=== PATIENT | female | born 1935 | race Caucasian/White ===

== ENCOUNTER → 2016-11-25 | Day surgery (SDC) | payer OTHER ==
[~2016-11-25] MED LIST: ALLO300T PO; AMLO10TA2 PO; ASPI-482 PO; CARV12.52 PO; FENO160T PO; FENTANYL PF 100 MCG/2 ML VIAL. IV PRN; HYDR30CR6 RC; HYDROMORPHONE 2 MG/ML VIAL. IV PRN; IV RINGERS,LACTATED 1000ML 1,000 ML IV SCH; LIDOCAINE 1% 1 ML SYRINGE. ID PRN; LIDOCAINE 2% PF Vial for OR 5 ML VIAL. ONE; LOSA100T6 PO; MELO-150 PO; MORPHINE SULFATE 2 MG/ML DISP.SYRIN. IV PRN; ONDANSETRON PF 4 MG/2 ML VIAL. IV PRN; PROCHLORPERAZINE 10 MG/2 ML VIAL. IV PRN; PROPOFOL 40 ML IV ONE; SPIR25TA3 PO
[2016-11-25 08:55] VITALS: BP 166/76
--- NOTE | 2016-11-26 13:33 | PATHOLOGY ---
PATHOLOGY REPORT * * * * * * * * FINAL DIAGNOSIS: Random colon biopsy: - Focal mucosal hyperplastic changes and acute inflammation. See comment. COMMENT: Sections of the random colon biopsy primarily reveal segments of colonic mucosa containing several mucosal-associated lymphoid aggregates. There is no evidence of a chronic destructive colitis, lymphocytic colitis, or collagenous colitis. One of the biopsy segments shows mucosal thickening and hyperplastic changes with associated acute inflammation of the lamina propria. This either represents an inflamed hyperplastic polyp or a focal area of acute colitis. Correlate clinically. (JPM:; d/t: 11/26/16) REPORT ELECTRONICALLY SIGNED BY: Hang Laughlin M.D. DATE/TIME: 11/26/2016 13:32 * * * * * * * * GROSS PATHOLOGY: Received in formalin labeled "Dre Tanner, random colon biopsy," are multiple (more than 10) segments of shah soft tissue measuring 0.9 x 0.7 x 0.3 cm in aggregate dimensions and ranging from 0.3 to 0.5 cm in maximum dimension. The specimen is submitted entirely in cassette A1. (KAH; 11/25/2016) INITIAL CPT CODE(S): A; 06688 Professional services performed [place] [facility] [address] Technical services performed by [facility] at [address] [place] [address], [facility] [address] [address]. SPECIMEN(S) RECEIVED: A.Random colon biopsy CLINICAL HISTORY: Abdominal pain PATIENT: DRE TANNER /AGE: 1109/06/1935 (Age: 81) PATIENT #: [id number] ALT CASE #: SPECIMEN COLLECTION DATE: 11/25/2016 SPECIMEN RECEIVED DATE: 11/25/2016 [facility] - [address] [place] [address] - PHONE: [phone] * * * END OF REPORT * * *
== END | disposition home or self-care (01) ==
LOC: ENDOS 06:42
PROVIDERS: ATTEND Internal Medicine Gastroenterology
DX: K64.1 Second degree hemorrhoids (principal); K57.30 Diverticulosis of large intestine without perforation or abscess without bleeding; K52.9 Noninfective gastroenteritis and colitis, unspecified; I10 Essential (primary) hypertension; M19.90 Unspecified osteoarthritis, unspecified site; F32.9 Major depressive disorder, single episode, unspecified; Z86.010 Personal history of colon polyps; Z90.710 Acquired absence of both cervix and uterus
CPT/HCPCS: 45380; 88305; J2704

== ENCOUNTER 2018-05-15 09:39 | Emergency (ER) | payer OTHER ==
[2018-05-15 10:12] LABS: ADD MAN DIFF? NO
[2018-05-15 10:15] LABS: BASO % 1 % (0-3); EOS # 0.3 x10^3/uL (0.0-0.7); EOS % 6 % (0-3); HEMOGLOBIN 12.7 g/dL (12.0-15.5); LYMPH # 1.4 x10^3/uL (1.0-4.8); LYMPH % 24 % (24-48); MEAN CORPUSCULAR HEMOGLOBIN 31 pg (25-35); MEAN CORPUSCULAR HGB CONC 34 g/dL (31-37); MEAN CORPUSCULAR VOLUME 91 fL (79-100); MONO # 0.5 x10^3/uL (0.0-1.1); MONO % 8 % (0-9); NEUT # 3.6 x10^3uL (1.8-7.7); NEUT % 62 % (31-73); PLATELET COUNT 139 x10^3/uL (140-400); RED BLOOD COUNT 4.16 x10^6/uL (3.50-5.40); RED CELL DISTRIBUTION WIDTH 14.3 % (11.5-14.5); WHITE BLOOD COUNT 5.8 x10^3/uL (4.0-11.0)
[2018-05-15 10:23] LABS: POC GLUCOSE 123 mg/dL (70-99)
[2018-05-15 10:56] LABS: ANION GAP 6 (6-14); BLOOD UREA NITROGEN 35 mg/dL (7-20); BUN/CREATININE RATIO 29 (6-20); CARBON DIOXIDE 31 mmol/L (21-32); CHLORIDE 107 mmol/L (98-107); CREATININE 1.2 mg/dL (0.6-1.0); GFR 43.1; GLUCOSE 109 mg/dL (70-99); POTASSIUM 4.8 mmol/L (3.5-5.1); SODIUM 144 mmol/L (136-145)
[2018-05-15 11:02] LABS: ALBUMIN 3.4 g/dL (3.4-5.0); ALK PHOS 91 U/L (46-116); ALT (SGPT) 16 U/L (14-59); AST (SGOT) 16 U/L (15-37); TOTAL BILIRUBIN 0.5 mg/dL (0.2-1.0); TOTAL PROTEIN 6.8 g/dL (6.4-8.2)
[2018-05-15 11:09] LABS: BILIRUBIN,URINE NEGATIVE (NEG); CLARITY,URINE CLEAR; GLUCOSE,URINE NEGATIVE (NEG); NITRITE,URINE NEGATIVE (NEG); PROTEIN,URINE NEGATIVE (NEG-TRACE); UROBILINOGEN,URINE 0.2 mg/dL (0.2 mg/dL)
[2018-05-15 11:24] LABS: COLOR,URINE COLORLESS
[2018-05-15 11:25] LABS: BACTERIA,URINE FEW /HPF (0-FEW); SQUAMOUS EPITHELIAL CELL,UR FEW /LPF
[2018-05-15 11:26] LABS: RBC,URINE OCC /HPF (0-2)
[2018-05-15] MEDS: cloNIDine HCL 0.1 MG TABLET PO (12:45)
[2018-05-15] MEDS: METOPROLOL TARTRATE 5 MG/5 ML VIAL. IVP (13:25)
== END 2018-05-15 14:24 | disposition home or self-care (01) ==
LOC: ER 14:24
DX: R42 Dizziness and giddiness (principal); R51 Headache; I10 Essential (primary) hypertension; M10.9 Gout, unspecified; E78.00 Pure hypercholesterolemia, unspecified; Z88.2 Allergy status to sulfonamides; Z88.8 Allergy status to other drugs, medicaments and biological substances; Z91.040 Latex allergy status
CPT/HCPCS: 36415; 70450; 80053; 81001; 82962; 85025; 93005; 96374; 99285-25; J3490

== ENCOUNTER → 2018-05-25 | Outpatient (CLI) | payer OTHER ==
[2018-05-15 14:07] VITALS: BP 153/70
[~2018-05-25] MED LIST changes: +ALLO100T PO; +CARV25TA2 PO; +DESO60CR TP; -FENTANYL PF 100 MCG/2 ML VIAL. IV PRN; +FURO40TA4 PO; +GEMF600T3 PO; -HYDROMORPHONE 2 MG/ML VIAL. IV PRN; -IV RINGERS,LACTATED 1000ML 1,000 ML IV SCH; -LIDOCAINE 1% 1 ML SYRINGE. ID PRN; -LIDOCAINE 2% PF Vial for OR 5 ML VIAL. ONE; -MELO-150 PO; +MELO15TA23 PO; -MORPHINE SULFATE 2 MG/ML DISP.SYRIN. IV PRN; -ONDANSETRON PF 4 MG/2 ML VIAL. IV PRN; -PROCHLORPERAZINE 10 MG/2 ML VIAL. IV PRN; -PROPOFOL 40 ML IV ONE; -SPIR25TA3 PO; +SPIR25TA5 PO
--- NOTE | 2018-05-25 16:42 | RAD ---
05/25/2018 Renal ultrasound Duplex evaluation duplex ultrasound evaluation of the renal arteries INDICATION:: Chronic renal disease. Stage III. Discussion: Ultrasound evaluation of the kidneys was performed. Static images are submitted to PACS. Limited visualization of the bladder is grossly unremarkable. Prevoid bladder volume 108 cc. Bilateral ureteral jets are noted. Mild renal cortical atrophy is seen on the right. The right kidney measures 9.4 cm in length. No hydronephrosis, nephrolithiasis, or focal renal lesion is seen on the right. Similar mild renal cortical atrophy is seen in the left. Left kidney measures 10.5 cm in length. No hydronephrosis, nephrolithiasis, or focal renal lesion is seen on the left. Ultrasound evaluation of the renal arteries is performed including color Doppler imaging with spectral analysis. Right renal artery peak systolic velocity: 137 cm/s. Left renal artery peak systolic velocity 116 cm/s. Peak systolic velocity of the abdominal aorta at the level renal arteries 187 cm/s. Renal aortic ratio on the right: 0.7 Renal aortic ratio on the left: 0.6. Bilateral renal veins are grossly patent. IMPRESSION: 1.Mild cortical atrophy involving the bilateral kidneys. Otherwise grossly unremarkable sonographic appearance of the kidneys. 2. No sonographic evidence of hemodynamically significant renal arterial stenosis is identified by ultrasound. Electronically signed by: Nahun Prater MD (05/25/2018 4:39 PM) [id number]
== END | disposition home or self-care (01) ==
LOC: US 14:31
PROVIDERS: ATTEND Internal Medicine
DX: N26.1 Atrophy of kidney (terminal) (principal); N18.3 Chronic kidney disease, stage 3 (moderate); E78.00 Pure hypercholesterolemia, unspecified; M19.90 Unspecified osteoarthritis, unspecified site
CPT/HCPCS: 76770; 93975

== ENCOUNTER 2019-02-14 22:39 | Emergency (ER) | payer OTHER ==
[~2019-02-14] VITALS: Ht 162.6 cm; Wt 83.9 kg
[~2019-02-14 22:39] MED LIST changes: -AMLO10TA2 PO; +AMLO10TA8 PO; +CARV12.511 PO; -CARV12.52 PO; -GEMF600T3 PO; +GEMF600T8 PO; +LOSA100T14 PO; -LOSA100T6 PO
[2019-02-14 22:55] VITALS: BP 219/84
--- NOTE | 2019-02-14 23:43 | PHYS DOC ---
Past Medical History Past Medical History: High Cholesterol, Hypertension, Other Additional Past Medical Histor: GOUT (GARFIELD HOROWITZ APRN) Past Surgical History: Hysterectomy, Other Additional Past Surgical Histo: CATARACT, CARPAL TUNNEL, BILAT KNEE, BACK (GARFIELD HOROWITZ APRN) Alcohol Use: None Drug Use: None (GARFIELD HOROWITZ APRN) Adult General Chief Complaint Chief Complaint: LOWER EXT PAIN HPI HPI Patient is a 83 year old female who presents with [3 day history of pain to her right knee. Reports she has been walking and twisted and felt some discomfort struck in her knee. Reports she does have bilateral knee replacements has had s imilar discomfort in that same knee approximately one year prior. Reports at that time she had used a brace and some physical therapy which resolved her discomfort. Today she reports she put the brace on for a little while but did not seem to help. Denies trauma (GARFIELD HOROWITZ APRN) Review of Systems Review of Systems Constitutional: Denies fever or chills [] Respiratory: Denies cough or shortness of breath [] Cardiovascular: No additional information not addressed in HPI [] GI: Denies abdominal pain, nausea, vomiting, bloody stools or diarrhea [] : Denies dysuria or hematuria [] Musculoskeletal: Denies back pain. Reports pain to right knee [] Integument: Denies rash or skin lesions [] Neurologic: Denies headache, focal weakness or sensory changes [] All other systems were reviewed and found to be within normal limits, except as documented in this note. (GARFIELD HOROWITZ APRN) Allergies Allergies Allergies Coded Allergies Type Severity Reaction Last Updated Verified Sulfa (Sulfonamide Antibiotics) Allergy Intermediate 11/25/16 Yes celecoxib Allergy Intermediate 11/25/16 No latex Allergy Intermediate Rash 11/25/16 Yes (PERICO HINSON DO) Physical Exam Physical Exam Constitutional: Well developed, well nourished, no acute distress, non-toxic appearance. [] HENT: Normocephalic, atraumatic, bilateral external ears normal, oropharynx moist, no oral exudates, nose normal. [] Eyes: PERRLA, EOMI, conjunctiva normal, no discharge. [] Neck: Normal range of motion, no tenderness, supple, no stridor. [] Cardiovascular:Heart rate regular rhythm, no murmur [] Lungs & Thorax: Bilateral breath sounds clear to auscultation [] Abdomen: Bowel sounds normal, soft, no tenderness, no masses, no pulsatile masses. [] Skin: Warm, dry, no erythema, no rash. [] Back: No tenderness, no CVA tenderness. [] Extremities: No tenderness, no cyanosis, no clubbing, ROM intact, no edema. Decreased ROM to right knee. [] Neurologic: Alert and oriented X 3, normal motor function, normal sensory function, no focal deficits noted. [] Psychologic: Affect normal, judgement normal, mood normal. [] (GARFIELD HOROWITZ APRN) Current Patient Data Vital Signs Vital Signs Date Time Temp Pulse Resp B/P (MAP) Pulse Ox O2 Delivery O2 Flow Rate FiO2 02/14/19 22:55 98.4 69 18 219/84 (129) 95 Room Air 98.4 (PERICO HINSON DO) EKG EKG [] (GARFIELD HOROWITZ APRN) Radiology/Procedures Radiology/Procedures Dr Hinson reviewed images: No acute fracture, artificial knee appears in place, well aligned without noted abnormalities. @ 0010.[] (GARFIELD HOROWITZ APRN) Radiology/Procedures PROCEDURE: KNEE RIGHT 3V EXAM: Right knee, 3 views. HISTORY: Twisting injury. COMPARISON: None. FINDINGS: 3 views of the right knee are obtained. There is a right knee arthroplasty in expected position. There is no fracture. There is no evidence of prosthesis loosening. There is suspected trace joint fluid. IMPRESSION: No acute osseous finding. Electronically signed by: Tiff Tan MD (02/15/2019 12:09 AM) [facility] (PERICO HINSON DO) Course & Med Decision Making Course & Med Decision Making Pertinent Labs and Imaging studies reviewed. (See chart for details) Discussed findings with patient. Discussed potential for this being similar to what she had last year and will recommend continue use of her splint at home. We'll give her an Johnathon wrap here. Recommending ice. Recommend she continues her exercises she was doing last year per her or so. Also recommend she follow although this next week. Patient in agreement with plan of care was no further questions or concerns. [] (GARFIELD HOROWITZ APRN) Dragon Disclaimer Dragon Disclaimer This electronic medical record was generated, in whole or in part, using a voice recognition dictation system. (GARFIELD HOROWITZ APRN) Departure Departure Impression: Primary Impression: Right knee pain Additional Impression: Acute pain of right knee Disposition: HOME, SELF-CARE Condition: GOOD Referrals: ANIBAL PAYNE MD (PCP) Patient Instructions: Knee Pain, [id number] Additional Instructions: As we discussed, use your brace at home when you are up moving around. Continue to do the exercises you learned and were doing last year. Follow up with your Orthopedic surgeon in a week Attending Signature Attending Signature I have reviewed the PA/TECHNICAL ACCOUNT REPRESENTATIVE's note and plan of care. I was available for consultation as needed during the patient's visit in the emergency department. I agree with the clinical impression, plan, and disposition. (PERICO HINSON DO) Problem Qualifiers GARFIELD HOROWITZ APRN February 14, 2019 23:43 PERICO HINSON DO February 15, 2019 05:49
--- NOTE | 2019-02-15 00:13 | RAD ---
EXAM: Right knee, 3 views. HISTORY: Twisting injury. COMPARISON: None. FINDINGS: 3 views of the right knee are obtained. There is a right knee arthroplasty in expected position. There is no fracture. There is no evidence of prosthesis loosening. There is suspected trace joint fluid. IMPRESSION: No acute osseous finding. Electronically signed by: Tiff Tan MD (02/15/2019 12:09 AM) [facility]
== END 2019-02-15 00:45 | disposition home or self-care (01) ==
LOC: ER 22:39
DX: M25.561 Pain in right knee (principal); G89.11 Acute pain due to trauma; I10 Essential (primary) hypertension; E78.00 Pure hypercholesterolemia, unspecified; Z96.653 Presence of artificial knee joint, bilateral; M10.9 Gout, unspecified; Z88.2 Allergy status to sulfonamides; Z91.040 Latex allergy status; Z88.8 Allergy status to other drugs, medicaments and biological substances; X50.9XXA Other and unspecified overexertion or strenuous movements or postures, initial encounter; Y93.01 Activity, walking, marching and hiking; Y92.89 Other specified places as the place of occurrence of the external cause; Y99.8 Other external cause status
CPT/HCPCS: 73562; 99284

== ENCOUNTER → 2019-02-23 | Outpatient (CLI) | payer OTHER ==
[2019-02-14 22:55] VITALS: BP 219/84
--- NOTE | 2019-02-23 15:46 | RAD ---
Three-phase bone scan, 02/23/2019: HISTORY: Right knee pain, previous arthroplasty Imaging of both knees was performed following an IV bolus injection of 22 mCi of technetium 99m MDP. The dynamic flow study is unremarkable. The blood pool images demonstrate photon deficient areas at both knees compatible with bilateral knee prostheses. There is mildly increased activity along the superior margin of the femoral component of the right knee prosthesis at the midline compared to the left on the blood pool image. This persists on the delayed images. Recent radiographs showed no significant abnormality in this region. IMPRESSION: Mildly increased activity along the superior margin of the femoral component of the right knee prosthesis, of uncertain significance. Electronically signed by: Marek Castillo MD (02/23/2019 3:43 PM) [facility]
== END | disposition home or self-care (01) ==
LOC: NM 08:29
PROVIDERS: ATTEND Orthopaedic Surgery
DX: C85.91 Non-Hodgkin lymphoma, unspecified, lymph nodes of head, face, and neck (principal); Z96.651 Presence of right artificial knee joint
CPT/HCPCS: 78315; A9503

== ENCOUNTER → 2020-09-04 | Outpatient (CLI) | payer MEDICARE ==
[2020-07-19 15:00] VITALS: BP 140/72
[~2020-09-04] MED LIST changes: +ACET325T9 PO; +AMLO-187 PO; -AMLO10TA8 PO; +DOCU-153 PO; +FURO20TA3 PO; +HYDR-2761 PO; +LACT1CAP19 PO
--- NOTE | 2020-09-04 14:09 | KCIC ---
EXAM: DUAL ENERGY X-RAY ABSORPTIOMETRY (DEXA). HISTORY: Postmenopausal screening. FINDINGS: The lowest measured T-score is 0.2 in the left total femur, based on a bone mineral density of 0.967 g/cm^2. Refer to the worksheets for full detail. No comparison examinations are available. IMPRESSION: Normal. Bone mineral density yields a T-score of -1.0 or greater. Fracture risk is low. FRAX was not calculated. METHODOLOGY: Dual energy x-ray absorptiometry was performed to measure bone mineral density. The following analysis is based on the 2019 Official Positions of the International Society for Clinical Densitometry: Measurements of the hips and the average of L1-L4 are preferred. When the spine and/or hip cannot be feasibly measured or interpreted, or in the setting of hyperparathyroidism, distal radial bone mineral density may be measured. The lumbar spine T-score is based on the average bone mineral density of L1-L4. In the setting of artifact or anatomic abnormality, some lumbar levels may be excluded, and the remaining levels used for calculation. A single lumbar level is not used for diagnosis, and if only a single level is available for assessment, another anatomic site will be used to assign a diagnosis. The hip T-score is based on the bone mineral density measurement of the femoral neck or total proximal femur of either side, whichever is lowest. Bilateral mean values are not used for diagnosis. The forearm T-score is derived from 33% of the distal radius of the nondominant forearm. For postmenopausal and perimenopausal women, and men age 50 or older, of all ethnic groups, T-scores are calculated through comparison of the current measurement with the NHANES III database standard for females aged 20-29 years. The lowest T-score of the evaluated anatomic sites is used to assign a diagnosis based on the World Health Organization densitometric classification. In premenopausal females and males younger than age 50, a Z-score is calculated based on population specific reference data for patient sex and self-reported ethnicity. Electronically signed by: Armando Escoto MD (09/04/2020 2:06 PM) [id number]
== END ==
LOC: KCIC DEXA 10:57
PROVIDERS: ATTEND Family Medicine
DX: N95.8 Other specified menopausal and perimenopausal disorders (principal)
CPT/HCPCS: 77080